=== PATIENT | male | born 1960 | race Caucasian/White ===

== ENCOUNTER 2020-08-26 11:43 | Emergency (ER) | payer OTHER ==
[2020-08-26] MEDS ORDERED: Bacitracin/Neomycin/Polymyxin B Oint 0.9 GM U/D Packet TOP ONE (11:47)
--- NOTE | 2020-08-26 11:53 | EDM.PDOC ---
ED HPI GENERAL MEDICAL PROBLEM - General Chief Complaint: Laceration Stated Complaint: laceration Time Seen by Provider: 08/26/20 11:45 Source of Information: Reports: Patient, Old Records ([facility] chart/EMR) History Limitations: Reports: No Limitations - History of Present Illness INITIAL COMMENTS - FREE TEXT/NARRATIVE: The patient was brought to the emergency room via transport vehicle from [facility] for evaluation of a Workmen's Compensation injury, which occurred at 11:03 AM this morning. The patient was at his break leaning back on a chair with wheels when it fell backwards resulting in a minor head contusion and head laceration. No history of recent headaches, visual changes, diplopia, change in mental status, or other change in neurological status. No treatment prior to arrival with patient not having any previous head concussion. He does have some minimal possible exacerbation of his chronic neck pain but no other significant injuries or complaints. The patient denies any chest pain/pressure, heart flutter, dizziness, orthostasis, orthopnea, diaphoresis, paresthesias, recent decreased exercise tolerance, or any other anginal-type symptoms. No recent history of abdominal pain, heartburn, nausea, diarrhea, melena, gross hematochezia, or any food intolerance, including fatty foods, etc.. The patient also denies any recent fever, cough, wheezing, dyspnea, etc.. Onset: Today, Sudden Onset Date: 08/26/20 Duration: Constant Location: Reports: Head, Neck (Minimal/borderline). 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) (None) back of head Pain Score (Numeric/FACES): 1 - Related Data Allergies Allergy/AdvReac Type Severity Reaction Status Date / Time valdecoxib [From Bextra] Allergy Stomach Verified 08/26/20 11:57 Upset Home Meds: Home Meds Metoprolol Tartrate 50 mg PO DAILY 08/19/16 [History] Omeprazole 20 mg PO DAILY 08/19/16 [History] Celecoxib [CeleBREX] 200 mg PO DAILY 08/26/20 [History] Fluticasone Propionate [Flonase] 1 spray NASBOTH DAILY PRN 08/26/20 [History] Past Medical History HEENT History: Reports: Allergic Rhinitis Cardiovascular History: Reports: Arrhythmia, High Cholesterol, Hypertension, Other (See Below) Other Cardiovascular History: Dyslipidemia. PACs and tachycardia. Incomplete right bundle branch block. Respiratory History: Reports: Asthma, Other (See Below) Other Respiratory History: Possible exercise-induced asthma and pulmonary restrictive disease. Gastrointestinal History: Reports: Cholelithiasis, Colon Polyp, Gastritis, GERD, Hiatal Hernia, PUD, Other (See Below). Denies: GI Bleed Other Gastrointestinal History: History of stress ulcers. Benign adenomatous colonic polyp at 30 cm the time of colonoscopy on 01/24/2007. Genitourinary History: Reports: BPH, Renal Calculus, Other (See Below) Other Genitourinary History: Left-sided calcium oxalate urolithiasis on 11/07/2002. Musculoskeletal History: Reports: Back Pain, Chronic, Gout, Neck Pain, Chronic, Osteoarthritis, Other (See Below) Other Musculoskeletal History: Hyperuricemia with degenerative disc disease, including mild right L5-S1 prolapsed disc. 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 Hyperuricemia without history of gout. Myofascial pain. Psychiatric History: Reports: Addiction, Anxiety, Depression, Other (See Below) Other Psychiatric History: Anxiety depression disorder with previous illicit drug use as below and questionable history of possible alcohol abuse, which the patient has denied in the past. - Past Surgical History GI Surgical History: Reports: Colonoscopy, EGD, Hernia, Inguinal, Other (See B alida) Other GI Surgeries/Procedures: EGD and colonoscopy with polypectomy on 01/24/2007 with results as above. Right inguinal hernia repair on 06/08/2003. Laparoscopic cholecystectomy on 01/04/2004. Neurological Surgical History: Reports: Discectomy, Thoracic Spine, Other (See Below) Other Neurological Surgeries/Procedures: Left-sided T6 radioablation on 05/30/2005 - Past Imaging History Past Imaging History: Reports: CAT Scan (CT of the head on 08/08/2011. CT of the pelvis, sacrum, and coccyx on 05/02/2004.), MRI (MRI of the cervical spine on 03/25/2013. MRI of the lumbar spine on 11/25/2007.) Social & Family History - Family History Cardiac: Reports: CAD, High Cholesterol, Hypertension, IA, Other (See Below) Other Cardiac Family History: Father with IA at age 75. Hypertension in parents, sisters x3, and brothers x5. Mother with hyperlipidemia. Respiratory: Reports: COPD, Other (See Below) Other Respiratory Family Hisory: Father with fatal COPD at age 75 with history of tobacco use. COPD and paternal uncles x2 and paternal aunt. Son with fatal SIDS at 11 months of age. : Reports: Renal Calculus OBGYN: Reports: Other (See Below) Other OBGYN Family History: Urolithiasis and father and brothers x2. Musculoskeletal: Reports: Arthritis, Gout, Other (See Below) Other Musculoskeletal Family History: Father with history of gout. Neurological: Reports: MS, Other (See Below) Other Neurological Family History: Sister with possible MS in her 20s. Endocrine/Metabolic: Reports: Diabetes, Type I, IDDM, Other (See Below) Other Endocrine/Metabolic Family History: Cousin with fatal type I IDDM in his 40s. Oncologic: Reports: Other (See Below) Other Oncologic Family History: Brother with possible fatal agent orange exposure at age 47. - Tobacco Use Tobacco Use Status *Q: Former Tobacco User Tobacco Use Within Last Twelve Months: Cigarettes Years of Tobacco use: 28 Packs/Tins Daily: 0.5 Packs/Tins Daily Comment: Smoked between ages 14 and 42. Used Tobacco, but Quit: Yes Smoking Cessation Information Provided To Patient: No Second Hand Smoke Exposure: No Second Hand Smoke Education Provided: No - Caffeine Use Caffeine Use: Reports: Coffee (2 cups/day), Soda (4 sodas per day) - Alcohol Use Alcohol Use History: Yes Days Per Week of Alcohol Use: 0 Alcohol Use Frequency: Rarely - Recreational Drug Use Recreational Drug Use: Yes Drug Use in Last 12 Months: No Recreational Drug Type: Reports: Heroin (IV heroin at age 14.), LSD (Acid) (Previously), Marijuana/Hashish (Previous marijuana use) - Living Situation & Occupation Occupation: Employed ([employer]) ED ROS GENERAL - Review of Systems Review Of Systems: Comprehensive ROS is negative, except as noted in HPI. ED EXAM, SKIN/RASH Exam: See Below Exam Limited By: No Limitations General Appearance: Alert, WD/WN, No Apparent Distress Eye Exam: Bilateral Eye: EOMI, Normal Fundi, Normal Inspection (No nystagmus), PERRL Ears: Normal External Exam, Normal Canal, Hearing Grossly Normal, Normal TMs Nose: Normal Inspection, Normal Mucosa, No Blood Throat/Mouth: Normal Inspection, Normal Lips, Normal Teeth, Normal Gums, Normal Oropharynx, Normal Voice, No Airway Compromise. No: Dysphagia, Perioral Cyanosis Head: Normocephalic, Other (1 cm in length laceration over the inferior mid occiput region with no crepitation, deformity, foreign body, or evidence of fracture). No: Facial Swelling, Facial Tenderness, Sinus Tenderness Neck: Normal Inspection, Supple, Non-Tender, Full Range of Motion. No: Lymphadenopathy (L), Lymphadenopathy (R), Thyromegaly Respiratory/Chest: No Respiratory Distress, Lungs Clear, Normal Breath Sounds, No Accessory Muscle Use, Chest Non-Tender. No: Pleural Rub, Retractions Cardiovascular: Normal Peripheral Pulses, Regular Rate, Rhythm, No Edema, No Gallop, No JVD, No Murmur, No Rub. No: Gallop/S3, Gallop/S4, Friction Rub Peripheral Pulses: 2+: Radial (L), Radial (R) GI/Abdominal: Normal Bowel Sounds, Soft, Non-Tender, No Organomegaly, No Distention, No Abnormal Bruit, No Mass, Pelvis Stable. No: Guarding (Male) Exam: Deferred Rectal (Males) Exam: Deferred Back Exam: Normal Inspection, Full Range of Motion. No: CVA Tenderness (L), CVA Tenderness (R), Muscle Spasm Extremities: Normal Inspection, Normal Range of Motion, Non-Tender, No Pedal Edema, Normal Capillary Refill. No: Mckenna's Sign Neurological: Alert, Oriented, CN II-XII Intact, Normal Cognition, Normal Gait, Normal Reflexes, No Motor/Sensory Deficits Psychiatric: Normal Affect, Normal Mood Skin: Normal Color, No Rash, Wound/Incision (As above). No: Diaphoretic Location, Skin: Head Characteristics: Linear Associated features: Tenderness (As above) Lymphatic: No Adenopathy ED SKIN PROCEDURES - Laceration/Wound Repair Lower Occipital Head Appearance: Superficial, Clean Distal NVT: Neuro & Vascular Intact, No Tendon Injury Anesthetic Type: Local Local Anesthesia - Lidocaine (Xylocaine): 1% Plain Local Anesthetic Volume: 4cc Skin Prep: Providone-Iodine (Betadine) Saline Irrigation (cc's): 0 Exploration/Debridement/Repair: Wound Explored, In a Bloodless Field, Explored to Base Closed with: Saúl Lac/Wound length In cm: 1.0 # of Sutures: 3 Suture Type: Interrupted, Simple Course - Vital Signs Last Recorded V/S: Last Vital Signs Temp 37.0 C 08/26/20 11:45 Pulse 71 08/26/20 11:45 Resp 18 08/26/20 11:45 BP 137/94 H 08/26/20 11:45 Pulse Ox 95 08/26/20 11:45 Vital Signs - 24 hr 08/26/20 11:45 Temperature [ 37.0 C Temporal] Pulse, 71 Peripheral [ Right Pulse Oximetry] Respiratory 18 Rate Blood Pressure 137/94 H [Right Upper Arm] O2 Sat by Pulse 95 Oximetry - Orders/Labs/Meds Orders: Active Orders 24 hr Category Date Time Status Obtain Past Medical Record [OM.PC] Routine Oth 08/26/20 11:48 Active Labs: None Meds: Medications Discontinued Medications Generic Name Dose Route Start Last Admin Trade Name Sandra PRN Reason Stop Dose Admin Lidocaine HCl 5 ml 08/26/20 11:47 08/26/20 11:53 Xylocaine-Mpf 1% INJECT 08/26/20 11:48 5 ml ONETIME ONE Administration Neomycin/Polymyxin/Bacitracin 1 each 08/26/20 11:47 08/26/20 11:53 Triple Antibiotic Oint TOP 08/26/20 11:48 1 each ONETIME ONE Administration - Radiology Interpretation Free Text/Narrative:: None Departure - Departure Time of Disposition: 12:30 Disposition: Home, Self-Care 01 Condition: Good Clinical Impression: Laceration, Peptic ulcer disease, Dyslipidemia, Mixed anxiety depressive disorder Osteoarthritis Qualifiers: Osteoarthritis location: multiple joints Osteoarthritis type: primary Qualified Code(s): M89.49 - Other hypertrophic osteoarthropathy, multiple sites Hypertension Qualifiers: Hypertension type: essential hypertension Qualified Code(s): I10 - Essential (primary) hypertension Contusion Qualifiers: Encounter type: initial encounter Contusion area: head Contusion of head detail: scalp Qualified Code(s): S00.03XA - Contusion of scalp, initial encounter - Discharge Information *PRESCRIPTION DRUG MONITORING PROGRAM REVIEWED*: Not Applicable *COPY OF PRESCRIPTION DRUG MONITORING REPORT IN PATIENT [place]: Not Applicable Instructions: Head Injury, Adult, [id number], Laceration Care, Adult, [id number], Sutures, Saúl, or Adhesive Wound Closure, [id number] Referrals: Daniel Stevenson PA [Primary Care Provider] - Forms: ED Department Discharge Additional Instructions: 1. Follow up with your regular provider in 10-14 days for staple removal as directed. Bring these discharge instructions with you to that visit. 2. Head precautions as directed-see form. 3. Antibacterial soap wash/soak with subsequent antibacterial dressing such as Neosporin, etc. as directed 2 times per day until the wound or laceration site completely heals. Keep the area clean and dry with activity restrictions as discussed. Never use hydrogen peroxide for wound care. 4. Tylenol 650 mg by mouth every 4 hours when necessary as directed. 5. Work excuse- See Form 6. Okay to see the chiropractor later today 7. Continue to observe your blood pressures closely through your regular provider 8. Immediately after this visit verify that your cellular telephone's voicemail has been activated and is empty. Also verify that your home telephone's answering machine is operating properly and has space to receive messages. Note that it is sometimes necessary for us to be able to contact you at a later date to discuss your medical care. 9. Please remember that we are ALWAYS here for you and want to answer any questions you may have. Feel free to call the hospital any time and we call you back SO. Sepsis Event Note (ED) - Focused Exam Vital Signs: Vital Signs Temp Pulse Resp BP Pulse Ox 08/26/20 11:45 37.0 C 71 18 137/94 H 95 - Problem List & Annotations (1) Laceration SNOMED Code(s): 164957403 Code(s): OPZ3744 - Status: Acute Priority: High Current Visit: Yes Onset Date: 08/26/20 Annotation/Comment:: Minor head laceration as above with excellent results with staple repair. Activity restrictions, wound care, etc. were extensively discussed. Workmen's Compensation and [employer] work excuse forms were completed. His tetanus booster is up-to-date with TDAP given on 10/18/2018, which was confirmed by the emergency room nurse through [employer]. (2) Contusion SNOMED Code(s): 769842358 Code(s): T14.8XXA - OTHER INJURY OF UNSPECIFIED BODY REGION, INITIAL ENCOUNTER Status: Acute Priority: High Current Visit: Yes Onset Date: 08/26/20 Annotation/Comment:: Minor head contusion with no evidence of neurological deficits, head concussion, etc. Head precautions were given. Qualifiers: Encounter type: initial encounter Contusion area: head Contusion of head detail: scalp Qualified Code(s): S00.03XA - Contusion of scalp, initial encounter (3) Osteoarthritis SNOMED Code(s): 150583000 Code(s): M19.90 - UNSPECIFIED OSTEOARTHRITIS, UNSPECIFIED SITE Status: Chronic Priority: Medium Current Visit: Yes Annotation/Comment:: Stable by history with no significant exacerbation of his neck or back pain with today's injury, although the patient does plan to see his chiropractor later today. Qualifiers: Osteoarthritis location: multiple joints Osteoarthritis type: primary Qualified Code(s): M89.49 - Other hypertrophic osteoarthropathy, multiple sites (4) Peptic ulcer disease SNOMED Code(s): 81477760 Code(s): K27.9 - PEPTIC ULC, SITE UNSP, UNSP AC OR CHR, W/O HEMOR OR PERF Status: Chronic Priority: Medium Current Visit: Yes Annotation/Comment:: Stable by history with current medical therapy. (5) Hypertension SNOMED Code(s): 64878889 Code(s): I10 - ESSENTIAL (PRIMARY) HYPERTENSION Status: Chronic Priority: Medium Current Visit: Yes Annotation/Comment:: Elevated in the emergency room. Continue to observe closely by his regular provider. Qualifiers: Hypertension type: essential hypertension Qualified Code(s): I10 - Essential (primary) hypertension (6) Dyslipidemia SNOMED Code(s): 416368138 Code(s): E78.5 - HYPERLIPIDEMIA, UNSPECIFIED Status: Chronic Priority: Medium Current Visit: Yes Annotation/Comment:: Not currently under therapy. (7) Mixed anxiety depressive disorder SNOMED Code(s): 102630722 Code(s): F41.8 - OTHER SPECIFIED ANXIETY DISORDERS Status: Chronic Priority: Medium Current Visit: Yes Annotation/Comment:: Stable by history with no current medical therapy. - Problem List Review Problem List Initiated/Reviewed/Updated: Yes - My Orders Last 24 Hours: My Active Orders 08/26/20 11:48 Obtain Past Medical Record [OM.PC] Routine - Assessment/Plan Last 24 Hours: My Active Orders 08/26/20 11:48 Obtain Past Medical Record [OM.PC] Routine Assessment:: As above Plan: As above. Extensive precautions were given to the patient, who is in agreement with the treatment plan. See Patient Instructions for further treatment and plan.
[2020-08-26 20:02] VITALS: BP 117/91; PULSE 70
== END 2020-08-26 12:30 | disposition home or self-care (01) ==
LOC: LL.ED 11:43
DX: S01.01XA Laceration without foreign body of scalp, initial encounter (principal); M89.49 Other hypertrophic osteoarthropathy, multiple sites; I10 Essential (primary) hypertension; K27.9 Peptic ulcer, site unspecified, unspecified as acute or chronic, without hemorrhage or perforation; E78.5 Hyperlipidemia, unspecified; F41.8 Other specified anxiety disorders; M10.9 Gout, unspecified; J45.909 Unspecified asthma, uncomplicated; K21.9 Gastro-esophageal reflux disease without esophagitis; Z88.8 Allergy status to other drugs, medicaments and biological substances; Z87.891 Personal history of nicotine dependence; Z79.899 Other long term (current) drug therapy; W19.XXXA Unspecified fall, initial encounter; Y99.0 Civilian activity done for income or pay
CPT/HCPCS: 12001; 99282-25; J2001